=== PATIENT | male | born 1985 ===

== ENCOUNTER → 2020-12-02 | Outpatient (CLI) | payer BC ==
[2020-12-02 14:58] LABS: Alanine Aminotransfer (ALT/SGP 28 U/L (12-78); Albumin, Blood 4.3 g/dL (3.4-5.0); Albumin/Globulin Ratio 1.3 (0.8-1.8); Alk Phos 47 U/L (50-136); Anion Gap 4 mmol/L (6-16); Aspartate Aminotrans (AST/SGOT 21 U/L (12-37); Bilirubin, Total 0.4 mg/dL (0.1-1.0); Blood Urea Nitrogen 13 mg/dL (8-24); Bun/Creatinine Ratio 16.9 (12.0-20.0); CHOL/HDL RATIO 3.6; CO2, Blood 29 mmol/L (21-32); Calcium, Blood 9.2 mg/dL (8.5-10.1); Chloride, Blood 108 mmol/L (98-108); Cholesterol 171 mg/dL (50-200); Creatinine, Blood 0.77 mg/dL (0.60-1.20); Globulin, Blood 3.2 g/dL (2.2-4.0); Glomerular Filtration Rate >60 (60-); Glucose, Blood 88 mg/dL (70-99); HDL Cholesterol 47 mg/dL (>39); LDL/HDL RATIO 2.4; Low Density Lipoprotein Chol 111 mg/dL (0-110); Sodium, Blood 141 mmol/L (136-145); Total Protein, Blood 7.5 g/dL (6.4-8.2); Triglycerides 66 mg/dL (30-140); Very Low Density Lipoprot Chol 13 mg/dL (6-28)
[2020-12-02 15:03] LABS: Thyroid Stimulating Hormone 0.683 uIU/mL (0.360-4.800)
== END | disposition home or self-care (01) ==
LOC: LAB 10:35 → LAB SHORT 10:35
PROVIDERS: Student in an Organized Health Care Education/Training Program
DX: Z00.00 Encounter for general adult medical examination without abnormal findings (principal); Z11.59 Encounter for screening for other viral diseases; Z13.6 Encounter for screening for cardiovascular disorders; R53.83 Other fatigue
CPT/HCPCS: 80053; 80061; 84439; 84443; 86803